=== PATIENT | female | born 2000 | race Two or more races ===

== ENCOUNTER 2024-05-28 07:53 | Emergency (ER) | payer MEDICAID, SELFPAY ==
[2024-05-28 07:58] VITALS: BP 111/75; PULSE 99; RESP 17; TEMP 37.1; O2SAT 97; BMI 31.2
--- NOTE | 2024-05-28 08:05 | PD.EDVAGBL ---
ED OB Contraction Preg RMI/HPI General Chief complaint: General Adult/Misc Complain Stated complaint: HCG level follow-up Time Seen by Provider: 05/28/24 08:01 Source: patient Arrival date/time: 05/28/24 07:53 24-year-old female presents emergency department requesting hCG level follow-up. Patient reports G1 and recently had miscarriage. Patient reports recently seen in ER and discharged home on antibiotics for UTI. Patient reports stopped vaginal bleeding yesterday. Patient denies any fever, chills, nausea vomiting, pelvic pain, dysuria, or any other associated symptom. Mode of arrival: ambulatory Limitations: no limitations Related Data Previous Rx's ?Medication ?Instructions ?Recorded acetaminophen 500 mg capsule 1,000 mg (2 x 500 mg) PO Q8HR PRN 05/21/24 pain #30 caps Allergies Allergy/AdvReac Type Severity Reaction Status Date / Time DYE CONTRAST Allergy Mild GI UPSET Uncoded 01/05/14 09:58 Review of Systems Review of Systems Systems Reviewed: All systems reviewed, normal except as documented Constitutional Constitutional: Reports system reviewed and no additional complaints, except as documented, Denies body ache(s), Denies chills and Denies fever(s) Eyes Eyes: Reports system reviewed and no additional complaints, except as documented and Denies change in vision ENT Ears, Nose, Mouth, and Throat: Reports system reviewed and no additional complaints, except as documented, Denies disequilibrium, Denies dizziness, Denies sore throat and Denies vertigo Cardiovascular Cardiovascular: Reports system reviewed and no additional complaints, except as documented, Denies chest pain and Denies dyspnea Respiratory Respiratory: Reports system reviewed and no additional complaints, except as documented, Denies chest congestion, Denies cough and Denies dyspnea Gastrointestinal Gastrointestinal: Reports system reviewed and no additional complaints, except as documented, Denies abdominal pain, Denies nausea and Denies vomiting Musculoskeletal Musculoskeletal: Reports system reviewed and no additional complaints, except as documented, Denies abnormal gait and Denies arthralgias Integumentary/Breasts Skin/Breast: Reports system reviewed and no additional complaints, except as documented, Denies erythema, Denies rash and Denies wounds Neurologic Neurologic: Reports system reviewed and no additional complaints, except as documented, Denies abnormal gait, Denies disequilibrium, Denies dizziness and Denies vertigo Past Medical History Social History SMOKING STATUS: Never smoker ED Exam General Limitations: Present no limitations General appearance: Present alert and in no apparent distress Head Head exam: Present atraumatic Eye Eye exam: Present normal appearance, PERRL and EOMI ENT ENT exam: Present normal exam, normal oropharynx and mucous membranes moist Neck Neck exam: Present normal inspection, full ROM and trachea midline Chest Chest inspection: Present normal inspection and symmetric chest wall rise Respiratory Respiratory exam: Present normal lung sounds bilaterally Cardiovascular Cardiovascular exam: Present regular rate, normal rhythm and normal heart sounds Abdominal Exam Abdominal exam: Present soft and normal bowel sounds Extremities Exam Extremities exam: Present normal inspection and full ROM Back Exam Back exam: Present normal inspection and full ROM Neurological Exam Neurological exam: Present alert, oriented X3 and CN II-XII intact Psychiatric Psychiatric exam: Present normal affect and normal mood Skin Skin exam: Present warm, dry, intact and normal color Course Quality Measures none Orders Category Date Time Status Beta HCG,Quantitative Stat Lab 05/28/24 08:11 Completed Vital Signs Vital signs: Vital Signs Temperature 98.7 F 05/28/24 07:58 Pulse Rate 99 05/28/24 07:58 Respiratory Rate 17 05/28/24 07:58 Blood Pressure 111/75 05/28/24 07:58 Pulse Oximetry (%) 97 05/28/24 07:58 Oxygen Delivery Method Room Air 05/28/24 07:58 97% on room air within normal limits Vaginal Bleeding MDM Narrative MDM Narrative: 24-year-old female presents emergency department requesting hCG level follow-up. Patient reports G1 and recently had miscarriage. Patient reports recently seen in ER and discharged home on antibiotics for UTI. Patient reports stopped vaginal bleeding yesterday. Patient denies any fever, chills, nausea vomiting, pelvic pain, dysuria, or any other associated symptom. Beta-hCG level trending down and is 217 today. Patient more than likely having miscarriage. Patient appears nontoxic and hemodynamically stable. Patient discharged home and instructed to follow-up with primary care provider and [facility] [facility]. Instructed to return to emergency department for any worsening symptoms or as needed. Patient data External records reviewed:: [facility] previous records Clinical information provided by:: patient Social determinants that could affect healthcare access:: none Patient has the following chronic illnesses:: n/a How is presenting disease/condition affected by chronic disease/condition?: no chronic disease Evaluation data The following diagnostics were reviewed and interpreted by me:: lab results Lab and/or radiology exams considered but not ordered:: Ordered Interpretation Summary: Interpreted by me Medications / Prescriptions Medications or Prescriptions considered but not ordered:: N/A Medication administrations:: N/A Consultations Consultation(s) initiated? (list below): No Diagnosis Vaginal Bleeding Differential Diagnosis: incomplete and vaginal bleeding Most likely diagnosis given after review of the tests above:: Vaginal bleeding Admission Indicated Admission indicated?: not indicated Admission Request Was there a request for admission?: No Disposition Plan Disposition Plan: Discharge Discharge Attestation Discharge Attestation: The patient and all family members were given an opportunity to ask questions and understood the discharge instructions. Discharge instructions specifically effects, indications for sooner follow up or return to the emergency department, and the expected course of current diagnosis. Patient condition: Stable Discharge Plan Plan Patient Disposition: HOME (Self Care) Disposition Comment: Stable Prescriptions/Referrals Prescriptions/Med Rec: No Action acetaminophen 500 mg capsule 1,000 mg PO Q8HR PRN (Reason: pain) Qty: 30 0RF Referrals: Erick Busby MD [Primary Care Provider] - In 1 week Problem List Clinical Impression: Vaginal bleeding in Patient/Caregiver Discharge Instructions Education Materials: Bleeding During Early Additional Instructions: Follow-up with [facility] [facility] upon discharge. Follow-up with primary care provider upon discharge. Return to the emergency department for any worsening symptoms or as needed. Print Language: Citizen Of [place] Stand Alone Forms: Olga Award Info., Patient Portal Info Letter Attestation Attestation The patient was seen by the midlevel practitioner. I, the co-signing physician, was present during the entire ER visit. While I did not physically examine the patient, I was available for consultation as needed.
[2024-05-28 08:52] LABS: Beta HCG,Quantitative 217 mIU/mL (<5.0)
== END 2024-05-28 09:03 | disposition home or self-care (01) ==
PROVIDERS: Emergency Provider Emergency Medicine; PCP Family Medicine
DX: O20.9 Hemorrhage in early pregnancy, unspecified (principal)
CPT/HCPCS: 36415; 84702; 99283